=== PATIENT | male | born 2005 | race Asian ===

== ENCOUNTER 2025-04-13 16:37 | Inpatient (IN) ==
[2025-04-13] MEDS: EPINEPHrine INJ 1 MG/ML AMP IM STA ×2 (17:36→18:08)
[2025-04-13] MEDS: diphenhydrAMINE 50 MG/ML VIAL ONE (17:36)
[2025-04-13] MEDS: diphenhydrAMINE 50 MG/ML VIAL IV STA (17:36)
--- NOTE | 2025-04-13 17:36 | Emergency Department Note ---
ED Visit Note I was consulted by the Advanced Practice Provider, Regi Link PA-C. I personally made/approved the management plan and take responsibility for the patient management. I performed a substantive portion of the visit. This includes the aspects of: -History/Physical/Personally seeing the patient -MDM .
[2025-04-13] MEDS: FAMOTIDINE 20MG IV PUSH 20 MG/5 ML SYR IV STA (17:37)
[2025-04-13] MEDS: EPINEPHrine INJ 1 MG/ML AMP ONE (17:37)
[2025-04-13 17:38] LABS: Hematocrit (blood only) 49.6 % (42.0-52.0); Hemoglobin 17.2 g/dL (14.0-18.0); Immature Granulocytes # (auto) 0.02 K/uL (0.01-0.20); Immature Granulocytes % (auto) 0.2 %; Mean Corpuscular Hemoglobin 30.0 pg (25.0-34.0); Mean Corpuscular Volume 86.4 fL (80.0-100.0); Platelet Count 190 K/uL (130-400); RDW Standard Deviation 40.9 fL (36.4-46.3); Red Blood Count 5.74 M/uL (4.70-6.10); White Blood Count 8.35 K/ul (4.8-10.8)
[2025-04-13] MEDS: FAMOTIDINE 20MG/5ML IV PUSH IV ONE (17:38)
[2025-04-13] MEDS: SODIUM CHLORIDE 0.9% 1,000 ML IV SCH (17:38)
[2025-04-13 17:57] LABS: Alanine Aminotransferase 31.0 U/L (7-52); Albumin Globulin Ratio 1.7 (0.9-2); Albumin Level 4.6 gm/dl (3.4-5.0); Alkaline Phosphatase 59.0 U/L (34-104); Anion Gap 10.0 (3-11); Bilirubin,Total 0.8 mg/dl (0.2-1.0); Blood Urea Nitrogen 12.0 mg/dl (6-23); Calcium 9.6 mg/dl (8.6-10.3); Carbon Dioxide 26.0 mmol/L (21-32); Chloride 106.0 mmol/L (98-107); Creatinine Clr Calc Pharmacy 125.4 ml/min; Globulin 2.7 gm/dl (2.5-4.0); Glucose 96.0 mg/dl (70-99(Fasting)); Potassium 3.7 mmol/L (3.5-5.1); Sodium 142.0 mmol/L (136-145); Total Protein 7.3 gm/dl (6.0-8.3)
[2025-04-13] MEDS: STAT IV Infusion **Titration per Protocol STA (18:08)
[2025-04-13] MEDS: EPINEPHrine/NSS 4 MG/254 ML BAG IV SCH (18:18)
--- NOTE | 2025-04-13 18:59 | Emergency Department Note ---
Impression & Plan Anaphylactic reaction, Acute hypoxemic respiratory failure ED Provider Note CHIEF COMPLAINT: Allergic reaction HISTORY OF PRESENT ILLNESS: This 19-year-old male presents to the emergency department after he patient developed sudden onset of facial swelling, difficulty breathing, itchiness. 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 He states he ate 1 bite of a hot dog here in the cafeteria at the hospital and immediately developed the symptoms. Patient administered himself his EpiPen and notes his symptoms improved, but he did present to the emergency department for further evaluation. Shortly after he was brought to a room, the patient developed reoccurrence of facial swelling, difficulty breathing, generalized itchiness. Patient complains now of swelling of the face and lips, a rash on the chest, and a sensation of swelling in the throat. Patient reports history of anaphylaxis and has responded well to epi in the past. REVIEW OF SYSTEMS: A complete 10 point review of systems was reviewed with the patient with pertinent positives and negatives as per history of present illness. All else were negative. ALLERGIES: Egg, lactase, nut, sesame, shellfish PHYSICAL EXAM: Vital Signs: Reviewed Nurse's notes. VITALS: Vitals are noted on the nurse's note and reviewed by myself. Patient is tachycardic. During my examination, he became hypoxic with an O2 saturation of 85% on room air. GENERAL: This is a 19-year-old male, in no acute distress, nondiaphoretic, well- developed well-nourished. SKIN: Diffuse erythema of the face, neck, chest, extremities. The lips are swollen. There is periorbital edema. The skin was without rashes, erythema, edema, or bruising. There is no tenting of the skin. Capillary refill less than 2 seconds. HEAD: Normocephalic atraumatic. EYES: Periorbital edema and erythema. Pupils equal round and reactive to light and accommodation. Conjunctivae without injection, sclerae without icterus. Extraocular movements intact. NOSE: Patent, turbinates without inflammation or discharge. No sinus tenderness. MOUTH: Mucous membranes moist. Tonsils are not enlarged. Pharynx is edematous and erythematous. Uvula midline. Airway patent. Tongue does not deviate. No stridor NECK: Supple without nuchal rigidity. No lymphadenopathy. Cervical spine is nontender. No JVD. HEART: Regular rate and rhythm without murmurs gallops or rubs. LUNGS: Diffuse wheezing. No retractions or accessory muscle use. ABDOMEN: Positive bowel sounds x 4. Normal tympanic percussion. Soft, nontender, without masses or organomegaly. No guarding or rebound tenderness. MUSCULOSKELETAL: No muscle atrophy, erythema, or edema noted. Full range of motion without joint tenderness in all extremities. No tenderness to palpation. Normal gait. Strength 5/5 throughout. NEURO: Patient was alert and oriented to person place and time. Normal sensation to light and sharp touch. Deep tendon reflexes 2+ throughout. No focal neurological deficits. EMERGENCY DEPARTMENT COURSE: The patient was evaluated as above. The patient presents to the emergency department for anaphylactic reaction. The patient did have an EpiPen prior to arrival. IV Access was obtained, labs are drawn. At this time, the patient is experiencing a rebound reaction. The patient's face is erythematous, he is wheezing, tachypneic, with diffuse urticaria. Pt is becoming hypoxic and more tachycardic while at the bedside. Orders placed at the bedside for Epinephrine SC, Solu-Medrol IV, Benadryl IV, and Pepcid IV. Pt was given initial dose of Epinephrine IV by nursing staff, as they did not realize the order was for SQ dosing. Redness and swelling of the face has improved. Lip swelling has resolved. Pt. did become more tachycardic and was having runs of Bigeminy and V-tach on the monitoring tech, per my interpretation. These dysrhythmias did resolve while at the bedside. The patient was monitored by me at the bedside for quite some time. His symptoms did improve, though he continued to complain of some shortness of breath. He remained on O2 via nonrebreather. At this time, I did notice that the monitoring tech showed a sinus tachycardia with ventricular rate of 120 bpm. I reevaluated the patient at the bedside and his face is erythematous and starting to become edematous. The patient does have a urticaria on the bilateral hands. Order at the bedside placed for additional dose of epinephrine SC. This was administered subcutaneously as directed. The patient was again monitored. The redness, edema, and urticaria have improved. At this time, he was placed on epinephrine drip. I did discuss the case with the [facility] hospitalist service. They would like for the patient to be admitted to the ICU. Please see hospitalist dictation regarding ongoing management and final disposition of this patient. Differential diagnosis includes allergic reaction, anaphylaxis, urticaria, Leonardo-Nacho syndrome, contact dermatitis, cellulitis, as well as other pathologies. I have personally spent greater than 75 minutes of critical care time in the direct management of this patient to assess and manage anaphylaxis and respiratory failure. This includes bedside care, interpretation of diagnostic studies, and testing, discussion with consultants, patient, and family members, documentation time, and other required patient management activities. This 75 minutes is in excess of all separately billable procedures. I attest that I have personally reviewed the patient's current medication list. Patient was found to have normal blood pressure on screening and does not require follow-up. The chart was completed utilizing [employer] Speech voice recognition software. Grammatical errors, random word insertions, pronoun errors, and incomplete sentences are an occasional consequence of this system due to software limitations, ambient noise, and hardware issues. Any formal questions or concerns about the content, text, or information contained within the body of this dictation should be directly addressed to the provider for clarification. 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: No Beliefs That Will Affect Care: None Current Living Situation: Other Current Living Situation Comment: roommates (college student) Feels Safe at Home: Yes Assistive Devices: None Allergies Allergies Allergy/AdvReac Type Severity Reaction Status Date / Time egg Allergy Anaphylaxis Verified 03/13/24 20:26 lactase [From Dairy Aid] Allergy Anaphylaxis Verified 03/13/24 20:26 nut - unspecified Allergy Anaphylaxis Verified 03/13/24 20:26 sesame oil Allergy Anaphylaxis Verified 03/13/24 20:26 sesame seed Allergy Anaphylaxis Verified 03/13/24 20:26 shellfish derived Allergy Anaphylaxis Verified 03/13/24 20:26 Home Meds Home Medications Medication Instructions Recorded Confirmed albuterol sulfate 90 mcg/actuation 1 inh inhalation QID PRN Shortness 03/13/24 04/13/25 aerosol inhaler Of Breath budesonide-formoterol HFA 160 1 inh inhalation BID 03/13/24 04/13/25 mcg-4.5 mcg/actuation aerosol inhaler (Symbicort) epinephrine 0.3 mg/0.3 mL 0.3 mg IM DIRECTED PRN ALLERGIES 03/13/24 04/13/25 injection, auto-injector Results & Data (ED) Vital Signs Vital Signs - 24 hr 04/13/25 16:37 04/13/25 16:37 04/13/25 16:38 Temperature 37 C Temperature Source Temporal Artery Scan Pulse Rate 98 H Pulse Rate [Right Finger] 82 Pulse Rate from SpO2 Sensor Respiratory Rate 18 18 Respiratory Effort / Characteristics Non-Labored Spontaneous Respiratory Depth Normal Respiratory Pattern Regular Blood Pressure 123/79 Blood Pressure [Right Arm] 135/85 Blood Pressure Mean 93 Blood Pressure Mean [Right Arm] 101 Pulse Oximetry 97 98 97 Oxygen Delivery Method Room Air Room Air Oxygen Flow Rate Sepsis Recent Fever Within 48 Hours No Sepsis New/Unexplained Change in Mental Status No Sepsis Action Taken by Nursing No Action Required 04/13/25 17:14 04/13/25 17:27 04/13/25 18:09 Temperature Temperature Source Pulse Rate 92 H 86 98 H Pulse Rate [Right Finger] Pulse Rate from SpO2 Sensor Respiratory Rate 20 20 Respiratory Effort / Characteristics Respiratory Depth Respiratory Pattern Blood Pressure Blood Pressure [Right Arm] Blood Pressure Mean Blood Pressure Mean [Right Arm] Pulse Oximetry 99 Oxygen Delivery Method Non-rebreather Oxygen Flow Rate 15 Sepsis Recent Fever Within 48 Hours Sepsis New/Unexplained Change in Mental Status Sepsis Action Taken by Nursing 04/13/25 18:10 04/13/25 18:10 04/13/25 18:10 Temperature Temperature Source Pulse Rate Pulse Rate [Right Finger] Pulse Rate from SpO2 Sensor Respiratory Rate Respiratory Effort / Characteristics Respiratory Depth Respiratory Pattern Blood Pressure 111/76 111/76 111/76 Blood Pressure [Right Arm] Blood Pressure Mean 89 89 89 Blood Pressure Mean [Right Arm] Pulse Oximetry Oxygen Delivery Method Oxygen Flow Rate Sepsis Recent Fever Within 48 Hours Sepsis New/Unexplained Change in Mental Status Sepsis Action Taken by Nursing 04/13/25 18:10 04/13/25 18:12 04/13/25 18:15 Temperature Temperature Source Pulse Rate 101 H 97 H Pulse Rate [Right Finger] Pulse Rate from SpO2 Sensor 97 H Respiratory Rate 20 20 Respiratory Effort / Characteristics Respiratory Depth Respiratory Pattern Blood Pressure 111/76 Blood Pressure [Right Arm] Blood Pressure Mean 89 Blood Pressure Mean [Right Arm] Pulse Oximetry 100 Oxygen Delivery Method Oxygen Flow Rate Sepsis Recent Fever Within 48 Hours Sepsis New/Unexplained Change in Mental Status Sepsis Action Taken by Nursing 04/13/25 18:15 04/13/25 18:15 04/13/25 18:15 Temperature Temperature Source Pulse Rate Pulse Rate [Right Finger] Pulse Rate from SpO2 Sensor Respiratory Rate Respiratory Effort / Characteristics Respiratory Depth Respiratory Pattern Blood Pressure 99/74 L 99/74 L 99/74 L Blood Pressure [Right Arm] Blood Pressure Mean 81 81 81 Blood Pressure Mean [Right Arm] Pulse Oximetry Oxygen Delivery Method Oxygen Flow Rate Sepsis Recent Fever Within 48 Hours Sepsis New/Unexplained Change in Mental Status Sepsis Action Taken by Nursing 04/13/25 18:15 04/13/25 18:18 04/13/25 18:20 Temperature Temperature Source Pulse Rate 97 H Pulse Rate [Right Finger] Pulse Rate from SpO2 Sensor Respiratory Rate 22 Respiratory Effort / Characteristics Respiratory Depth Respiratory Pattern Blood Pressure 99/74 L 123/76 Blood Pressure [Right Arm] Blood Pressure Mean 81 85 Blood Pressure Mean [Right Arm] Pulse Oximetry Oxygen Delivery Method Oxygen Flow Rate Sepsis Recent Fever Within 48 Hours Sepsis New/Unexplained Change in Mental Status Sepsis Action Taken by Nursing 04/13/25 18:20 04/13/25 18:20 04/13/25 18:20 Temperature Temperature Source Pulse Rate Pulse Rate [Right Finger] Pulse Rate from SpO2 Sensor Respiratory Rate Respiratory Effort / Characteristics Respiratory Depth Respiratory Pattern Blood Pressure 123/76 123/76 123/76 Blood Pressure [Right Arm] Blood Pressure Mean 85 85 85 Blood Pressure Mean [Right Arm] Pulse Oximetry Oxygen Delivery Method Oxygen Flow Rate Sepsis Recent Fever Within 48 Hours Sepsis New/Unexplained Change in Mental Status Sepsis Action Taken by Nursing 04/13/25 18:20 04/13/25 18:21 04/13/25 18:24 Temperature Temperature Source Pulse Rate 100 H 100 H Pulse Rate [Right Finger] Pulse Rate from SpO2 Sensor 96 H 96 H Respiratory Rate 14 21 Respiratory Effort / Characteristics Respiratory Depth Respiratory Pattern Blood Pressure 123/76 Blood Pressure [Right Arm] Blood Pressure Mean 85 Blood Pressure Mean [Right Arm] Pulse Oximetry 100 100 Oxygen Delivery Method Oxygen Flow Rate Sepsis Recent Fever Within 48 Hours Sepsis New/Unexplained Change in Mental Status Sepsis Action Taken by Nursing 04/13/25 18:25 04/13/25 18:25 04/13/25 18:25 Temperature Temperature Source Pulse Rate Pulse Rate [Right Finger] Pulse Rate from SpO2 Sensor Respiratory Rate Respiratory Effort / Characteristics Respiratory Depth Respiratory Pattern Blood Pressure 115/71 115/71 115/71 Blood Pressure [Right Arm] Blood Pressure Mean 81 81 81 Blood Pressure Mean [Right Arm] Pulse Oximetry Oxygen Delivery Method Oxygen Flow Rate Sepsis Recent Fever Within 48 Hours Sepsis New/Unexplained Change in Mental Status Sepsis Action Taken by Nursing 04/13/25 18:25 04/13/25 18:30 04/13/25 18:30 Temperature Temperature Source Pulse Rate Pulse Rate [Right Finger] Pulse Rate from SpO2 Sensor Respiratory Rate Respiratory Effort / Characteristics Respiratory Depth Respiratory Pattern Blood Pressure 115/71 114/68 114/68 Blood Pressure [Right Arm] Blood Pressure Mean 81 79 79 Blood Pressure Mean [Right Arm] Pulse Oximetry Oxygen Delivery Method Oxygen Flow Rate Sepsis Recent Fever Within 48 Hours Sepsis New/Unexplained Change in Mental Status Sepsis Action Taken by Nursing 04/13/25 18:30 04/13/25 18:30 04/13/25 18:30 Temperature Temperature Source Pulse Rate Pulse Rate [Right Finger] Pulse Rate from SpO2 Sensor Respiratory Rate Respiratory Effort / Characteristics Respiratory Depth Respiratory Pattern Blood Pressure 114/68 114/68 114/68 Blood Pressure [Right Arm] Blood Pressure Mean 79 79 79 Blood Pressure Mean [Right Arm] Pulse Oximetry Oxygen Delivery Method Oxygen Flow Rate Sepsis Recent Fever Within 48 Hours Sepsis New/Unexplained Change in Mental Status Sepsis Action Taken by Nursing 04/13/25 18:30 04/13/25 18:33 04/13/25 18:35 Temperature Temperature Source Pulse Rate 77 75 Pulse Rate [Right Finger] Pulse Rate from SpO2 Sensor 79 77 Respiratory Rate 16 18 Respiratory Effort / Characteristics Respiratory Depth Respiratory Pattern Blood Pressure 107/61 Blood Pressure [Right Arm] Blood Pressure Mean 81 Blood Pressure Mean [Right Arm] Pulse Oximetry 100 100 Oxygen Delivery Method Oxygen Flow Rate Sepsis Recent Fever Within 48 Hours Sepsis New/Unexplained Change in Mental Status Sepsis Action Taken by Nursing 04/13/25 18:35 04/13/25 18:35 04/13/25 18:35 Temperature Temperature Source Pulse Rate Pulse Rate [Right Finger] Pulse Rate from SpO2 Sensor Respiratory Rate Respiratory Effort / Characteristics Respiratory Depth Respiratory Pattern Blood Pressure 107/61 107/61 107/61 Blood Pressure [Right Arm] Blood Pressure Mean 81 81 81 Blood Pressure Mean [Right Arm] Pulse Oximetry Oxygen Delivery Method Oxygen Flow Rate Sepsis Recent Fever Within 48 Hours Sepsis New/Unexplained Change in Mental Status Sepsis Action Taken by Nursing 04/13/25 18:35 04/13/25 18:39 04/13/25 18:40 Temperature Temperature Source Pulse Rate 83 Pulse Rate [Right Finger] Pulse Rate from SpO2 Sensor 83 Respiratory Rate 16 Respiratory Effort / Characteristics Respiratory Depth Respiratory Pattern Blood Pressure 107/61 111/64 Blood Pressure [Right Arm] Blood Pressure Mean 81 83 Blood Pressure Mean [Right Arm] Pulse Oximetry 100 Oxygen Delivery Method Oxygen Flow Rate Sepsis Recent Fever Within 48 Hours Sepsis New/Unexplained Change in Mental Status Sepsis Action Taken by Nursing 04/13/25 18:40 04/13/25 18:40 04/13/25 18:40 Temperature Temperature Source Pulse Rate Pulse Rate [Right Finger] Pulse Rate from SpO2 Sensor Respiratory Rate Respiratory Effort / Characteristics Respiratory Depth Respiratory Pattern Blood Pressure 111/64 111/64 111/64 Blood Pressure [Right Arm] Blood Pressure Mean 83 83 83 Blood Pressure Mean [Right Arm] Pulse Oximetry Oxygen Delivery Method Oxygen Flow Rate Sepsis Recent Fever Within 48 Hours Sepsis New/Unexplained Change in Mental Status Sepsis Action Taken by Nursing 04/13/25 18:40 04/13/25 18:42 04/13/25 18:45 Temperature Temperature Source Pulse Rate 82 Pulse Rate [Right Finger] Pulse Rate from SpO2 Sensor 83 Respiratory Rate 16 Respiratory Effort / Characteristics Respiratory Depth Respiratory Pattern Blood Pressure 111/64 115/72 Blood Pressure [Right Arm] Blood Pressure Mean 83 83 Blood Pressure Mean [Right Arm] Pulse Oximetry 99 Oxygen Delivery Method Oxygen Flow Rate Sepsis Recent Fever Within 48 Hours Sepsis New/Unexplained Change in Mental Status Sepsis Action Taken by Nursing 04/13/25 18:45 04/13/25 18:45 04/13/25 18:45 Temperature Temperature Source Pulse Rate Pulse Rate [Right Finger] Pulse Rate from SpO2 Sensor Respiratory Rate Respiratory Effort / Characteristics Respiratory Depth Respiratory Pattern Blood Pressure 115/72 115/72 115/72 Blood Pressure [Right Arm] Blood Pressure Mean 83 83 83 Blood Pressure Mean [Right Arm] Pulse Oximetry Oxygen Delivery Method Oxygen Flow Rate Sepsis Recent Fever Within 48 Hours Sepsis New/Unexplained Change in Mental Status Sepsis Action Taken by Nursing 04/13/25 18:45 04/13/25 18:45 04/13/25 18:48 Temperature Temperature Source Pulse Rate 86 85 Pulse Rate [Right Finger] Pulse Rate from SpO2 Sensor 86 82 Respiratory Rate 17 15 Respiratory Effort / Characteristics Respiratory Depth Respiratory Pattern Blood Pressure 115/72 Blood Pressure [Right Arm] Blood Pressure Mean 83 Blood Pressure Mean [Right Arm] Pulse Oximetry 99 99 Oxygen Delivery Method Oxygen Flow Rate Sepsis Recent Fever Within 48 Hours Sepsis New/Unexplained Change in Mental Status Sepsis Action Taken by Nursing 04/13/25 18:50 04/13/25 18:50 04/13/25 18:50 Temperature Temperature Source Pulse Rate Pulse Rate [Right Finger] Pulse Rate from SpO2 Sensor Respiratory Rate Respiratory Effort / Characteristics Respiratory Depth Respiratory Pattern Blood Pressure 108/70 108/70 108/70 Blood Pressure [Right Arm] Blood Pressure Mean 83 83 83 Blood Pressure Mean [Right Arm] Pulse Oximetry Oxygen Delivery Method Oxygen Flow Rate Sepsis Recent Fever Within 48 Hours Sepsis New/Unexplained Change in Mental Status Sepsis Action Taken by Nursing 04/13/25 18:50 04/13/25 18:50 04/13/25 18:51 Temperature Temperature Source Pulse Rate 91 H Pulse Rate [Right Finger] Pulse Rate from SpO2 Sensor 96 H Respiratory Rate 18 Respiratory Effort / Characteristics Respiratory Depth Respiratory Pattern Blood Pressure 108/70 108/70 Blood Pressure [Right Arm] Blood Pressure Mean 83 83 Blood Pressure Mean [Right Arm] Pulse Oximetry 100 Oxygen Delivery Method Oxygen Flow Rate Sepsis Recent Fever Within 48 Hours Sepsis New/Unexplained Change in Mental Status Sepsis Action Taken by Nursing 04/13/25 18:54 04/13/25 18:55 04/13/25 18:55 Temperature Temperature Source Pulse Rate 104 H Pulse Rate [Right Finger] Pulse Rate from SpO2 Sensor 102 H Respiratory Rate 19 Respiratory Effort / Characteristics Respiratory Depth Respiratory Pattern Blood Pressure 107/68 107/68 Blood Pressure [Right Arm] Blood Pressure Mean 78 78 Blood Pressure Mean [Right Arm] Pulse Oximetry 99 Oxygen Delivery Method Oxygen Flow Rate Sepsis Recent Fever Within 48 Hours Sepsis New/Unexplained Change in Mental Status Sepsis Action Taken by Nursing 04/13/25 18:55 04/13/25 18:55 04/13/25 18:55 Temperature Temperature Source Pulse Rate Pulse Rate [Right Finger] Pulse Rate from SpO2 Sensor Respiratory Rate Respiratory Effort / Characteristics Respiratory Depth Respiratory Pattern Blood Pressure 107/68 107/68 107/68 Blood Pressure [Right Arm] Blood Pressure Mean 78 78 78 Blood Pressure Mean [Right Arm] Pulse Oximetry Oxygen Delivery Method Oxygen Flow Rate Sepsis Recent Fever Within 48 Hours Sepsis New/Unexplained Change in Mental Status Sepsis Action Taken by Nursing 04/13/25 19:00 04/13/25 19:00 04/13/25 19:00 Temperature Temperature Source Pulse Rate Pulse Rate [Right Finger] Pulse Rate from SpO2 Sensor Respiratory Rate Respiratory Effort / Characteristics Respiratory Depth Respiratory Pattern Blood Pressure 107/65 107/65 107/65 Blood Pressure [Right Arm] Blood Pressure Mean 75 75 75 Blood Pressure Mean [Right Arm] Pulse Oximetry Oxygen Delivery Method Oxygen Flow Rate Sepsis Recent Fever Within 48 Hours Sepsis New/Unexplained Change in Mental Status Sepsis Action Taken by Nursing 04/13/25 19:00 04/13/25 19:00 04/13/25 19:00 Temperature Temperature Source Pulse Rate 90 Pulse Rate [Right Finger] Pulse Rate from SpO2 Sensor 90 Respiratory Rate 15 Respiratory Effort / Characteristics Respiratory Depth Respiratory Pattern Blood Pressure 107/65 107/65 Blood Pressure [Right Arm] Blood Pressure Mean 75 75 Blood Pressure Mean [Right Arm] Pulse Oximetry 99 Oxygen Delivery Method Oxygen Flow Rate Sepsis Recent Fever Within 48 Hours Sepsis New/Unexplained Change in Mental Status Sepsis Action Taken by Nursing 04/13/25 19:03 04/13/25 19:05 04/13/25 19:05 Temperature Temperature Source Pulse Rate 102 H Pulse Rate [Right Finger] Pulse Rate from SpO2 Sensor 99 H Respiratory Rate 15 Respiratory Effort / Characteristics Respiratory Depth Respiratory Pattern Blood Pressure 110/67 110/67 Blood Pressure [Right Arm] Blood Pressure Mean 82 82 Blood Pressure Mean [Right Arm] Pulse Oximetry 99 Oxygen Delivery Method Oxygen Flow Rate Sepsis Recent Fever Within 48 Hours Sepsis New/Unexplained Change in Mental Status Sepsis Action Taken by Nursing 04/13/25 19:05 04/13/25 19:05 04/13/25 19:05 Temperature Temperature Source Pulse Rate Pulse Rate [Right Finger] Pulse Rate from SpO2 Sensor Respiratory Rate Respiratory Effort / Characteristics Respiratory Depth Respiratory Pattern Blood Pressure 110/67 110/67 110/67 Blood Pressure [Right Arm] Blood Pressure Mean 82 82 82 Blood Pressure Mean [Right Arm] Pulse Oximetry Oxygen Delivery Method Oxygen Flow Rate Sepsis Recent Fever Within 48 Hours Sepsis New/Unexplained Change in Mental Status Sepsis Action Taken by Nursing Laboratory Data 04/13/25 16:51 04/13/25 16:51 Lab Results 04/13/25 Range/Units 16:51 WBC 8.35 (4.8-10.8) K/ul RBC 5.74 (4.70-6.10) M/uL Hgb 17.2 (14.0-18.0) g/dL Hct 49.6 (42.0-52.0) % MCV 86.4 (80.0-100.0) fL MCH 30.0 (25.0-34.0) pg MCHC 34.7 (32.0-36.0) g/dL RDW Std Deviation 40.9 (36.4-46.3) fL RDW Coeff of Pedro Luis 13.2 (11.5-14.5) % Plt Count 190 (130-400) K/uL MPV 11.3 (9.4-12.4) fL Immature Gran % (Auto) 0.2 % Neut % (Auto) 43.5 % Lymph % (Auto) 39.4 % [place] % (Auto) 7.4 % Eos % (Auto) 8.5 % Baso % (Auto) 1.0 % Neut # (Auto) 3.63 (1.40-6.50) K/uL Lymph # (Auto) 3.29 (1.20-3.40) K/uL [place] # (Auto) 0.62 H (0.11-0.59) K/uL Eos # (Auto) 0.71 H (0.00-0.50) K/uL Baso # (Auto) 0.08 (0.00-0.20) K/uL Immature Gran # (Auto) 0.02 (0.01-0.20) K/uL Sodium 142 (136-145) mmol/L Potassium 3.7 (3.5-5.1) mmol/L Chloride 106 (98-107) mmol/L Carbon Dioxide 26 (21-32) mmol/L Anion Gap 10 (3-11) BUN 12 (6-23) mg/dl Creatinine 0.80 (0.6-1.4) mg/dl Est Cr Clr Drug Dosing 125.4 ml/min eGFR 129.93 BUN/Creatinine Ratio 15.0 (10-20) Glucose 96 (70-99(Fasting)) mg/dl Calcium 9.6 (8.6-10.3) mg/dl Total Bilirubin 0.8 (0.2-1.0) mg/dl AST 19 (13-39) U/L ALT 31 (7-52) U/L Alkaline Phosphatase 59 (34-104) U/L Total Protein 7.3 (6.0-8.3) gm/dl Albumin 4.6 (3.4-5.0) gm/dl Globulin 2.7 (2.5-4.0) gm/dl Albumin/Globulin Ratio 1.7 (0.9-2) Administered Medications Famotidine (Famotidine 20 Mg Tab) 40 mg PO BID CARMEN Stop: 05/13/25 20:59 Last Admin: 04/13/25 20:13 Dose: 40 mg Documented By: CR Fluticasone/Vilanterol (Fluticasone/Vilanterol 200/25mcg 14 Puffs/Inhaler) 1 puffs INH DAILY [facility]; Protocol Stop: 05/13/25 20:14 Last Admin: 04/13/25 20:22 Dose: Not Given Documented By: CR Epinephrine HCl () 4 mg in 254 mls @ 11.468 mls/hr IV .[id number] CARMEN; Protocol Stop: 05/13/25 18:14 Last Infusion: 04/13/25 21:51 Dose: 0 mcg/kg/min, 0 mls/hr Documented By: CR Co-signed By: MNM Infusion: 04/13/25 21:40 Dose: 0.01 mcg/kg/min, 2.3 mls/hr Documented By: CR Co-signed By: MNM Infusion: 04/13/25 21:35 Dose: 0.02 mcg/kg/min, 4.6 mls/hr Documented By: CR Co-signed By: MNM Infusion: 04/13/25 21:15 Dose: 0.03 mcg/kg/min, 6.9 mls/hr Documented By: CR Co-signed By: MNM Infusion: 04/13/25 21:00 Dose: 0.04 mcg/kg/min, 9.2 mls/hr Documented By: CR Co-signed By: MNM Infusion: 04/13/25 20:50 Dose: 0.05 mcg/kg/min, 11.5 mls/hr Documented By: CR Co-signed By: [id number] Infusion: 04/13/25 20:45 Dose: 0.06 mcg/kg/min, 13.8 mls/hr Documented By: CR Co-signed By: [id number] Infusion: 04/13/25 20:40 Dose: 0.07 mcg/kg/min, 16.1 mls/hr Documented By: MARYAM Co-signed By: [id number] Infusion: 04/13/25 20:35 Dose: 0.08 mcg/kg/min, 18.3 mls/hr Documented By: CR Co-signed By: [id number] Infusion: 04/13/25 20:30 Dose: 0.09 mcg/kg/min, 20.6 mls/hr Documented By: CR Co-signed By: [id number] Admin: 04/13/25 18:18 Dose: 0.1 mcg/kg/min, 22.9 mls/hr Documented By: GABBIE Co-signed By: loki Parenteral Electrolytes (Plasma-Lyte A Ph 7.4) 1,000 mls @ 125 mls/hr IV .Q8H CARMEN Stop: 04/16/25 19:46 Last Admin: 04/13/25 20:06 Dose: 125 mls/hr Documented By: MARYAM Miscellaneous (Icu Protocol For Hyperglycemia) 1 each N/A ACHS CARMEN Stop: 04/15/25 20:59 Last Admin: 04/13/25 20:12 Dose: Not Given Documented By: MARYAM Discontinued Medications Diphenhydramine HCl (Diphenhydramine 50 Mg/Ml Vial) Confirm Administered Dose 50 mg .ROUTE .STK-MED ONE Stop: 04/13/25 17:20 Last Admin: 04/13/25 17:36 Dose: Not Given Documented By: loki Diphenhydramine HCl (Diphenhydramine 50 Mg/Ml Vial) 50 mg IV NOW STA Stop: 04/13/25 17:20 Last Admin: 04/13/25 17:36 Dose: 50 mg Documented By: loki Epinephrine HCl (Epinephrine Inj 1 Mg/Ml Amp) 0.3 mg IM NOW STA Stop: 04/13/25 17:20 Last Admin: 04/13/25 17:36 Dose: 0.3 mg Documented By: loki Epinephrine HCl (Epinephrine Inj 1 Mg/Ml Amp) Confirm Administered Dose 1 mg .ROUTE .STK-MED ONE Stop: 04/13/25 17:21 Last Admin: 04/13/25 17:37 Dose: Not Given Documented By: loki Epinephrine HCl (Epinephrine Inj 1 Mg/Ml Amp) 0.3 mg IM NOW STA Stop: 04/13/25 18:04 Last Admin: 04/13/25 18:08 Dose: 0.3 mg Documented By: GABBIE Famotidine (Famotidine 20mg/5ml Iv Push) Confirm Administered Dose 20 mg IV .STK-MED ONE Stop: 04/13/25 17:22 Last Admin: 04/13/25 17:38 Dose: Not Given Documented By: loki Famotidine (Pepcid 20mg Iv Push) 20 mg in 5 mls @ 2.5 mls/min IV NOW STA Stop: 04/13/25 17:20 Last Admin: 04/13/25 17:37 Dose: 2.5 mls/min Documented By: loki Sodium Chloride (Nss) 1,000 mls @ 999 mls/hr IV .Q1H1M CARMEN Stop: 04/13/25 18:30 Last Infusion: 04/13/25 19:02 Dose: Infused Documented By: loki Admin: 04/13/25 17:38 Dose: 999 mls/hr Documented By: loki Methylprednisolone (Methylprednisolone 125 Mg/2 Ml Vial) Confirm Administered Dose 125 mg .ROUTE .STK-MED ONE Stop: 04/13/25 17:20 Last Admin: 04/13/25 17:37 Dose: Not Given Documented By: loki Methylprednisolone (Methylprednisolone 125 Mg/2 Ml Vial) 125 mg IV NOW STA Stop: 04/13/25 17:20 Last Admin: 04/13/25 17:37 Dose: 125 mg Documented By: loki Miscellaneous (Stat Iv Infusion Titration Per Protocol) 1 each N/A NOW STA Stop: 04/13/25 18:05 Last Admin: 04/13/25 18:08 Dose: Not Given Documented By: ARS Discharge Plan Visit Data Chief Complaint: Allergic Reaction Stated Complaint: ALLERGIC RXN, FACE FLUSHED, PAST 15-20 MINS ED Provider: Jeremías Sofia ED Midlevel Provider: Regi Link Discharge Problem: Anaphylactic reaction, Acute hypoxemic respiratory failure Patient Disposition: Admitted As Inpatient Condition: Serious Discharge Instructions Interventions: ED Discharge Assessment Last Done: 04/13/25 19:46
--- NOTE | 2025-04-13 19:09 | History & Physical Report ---
Date of Service April 13, 2025 Assessment & Plan (1) Anaphylactic reaction: Plan 19 y/o male with PMH of asthma nd allergies presented to the Ed after a anaphylaxis reaction. Patient is a volunteer in the hospital. Around 4 pm he had a hot dog, suddenly after patient developed SOB, facial swelling itchiness. Patient used his own EpiPen. His symptoms improved shortly after. After arrival to the ED patient developed recurrence of symptoms, Additionally of facial swelling, difficulty breathing patient states having swelling of lips and face as well as a rash on his body. Patient received 2 mores doses of epinephrine, Benadryl, Methylprednisolone 125 mg and h1 blockers . Patient still was having bronchospasm symptoms, he was placed on an epinephrine drip. On Evaluation patient resting comfortable, symptoms are resolved. Denied nay difficulty breathing or itchiness. Only complains is feeling restless after Epi ggt was started. Patient stated that he usually responded well to the EpiPen. Known history of allergies to egg, lactose, nuts, sesame oil/seeds and selfish. He is a Senior at [employer] Anaphylaxis reaction - Difficulty breathing, rash, itchiness, swelling of face and lips after eating a hot dog. Suspected cross contamination - Patient received his EpiPen and 2 more doses of epinephrine IM in the ED, famotidine, Methylprednisolone 125 mg and Benadryl - Patient still with symptoms of bronchospasm, patient was placed on Epinephrine ggt - Will admit patient to ICU - Continue Epinephrine ggt for now, plan to dc after been on unit for observation - Famotidine in am - Benadryl as needed q4 hrs - Keep NPO status, if tolerate dc of ggt can have diet (clears diet) - Plasmalyte while on NPO - Labs in AM Dispo: ICU -DVT prophylaxis: low risk, SCDs History of Present Illness Primary Care Provider: [facility] 19 y/o male with PMH of asthma nd allergies presented to the Ed after a anaphylaxis reaction. Patient is a volunteer in the hospital. Around 4 pm he had a hot dog, suddenly after patient developed SOB, facial swelling itchiness. Patient used his own EpiPen. His symptoms improved shortly after. After arrival to the ED patient developed recurrence of symptoms, Additionally of facial swelling, difficulty breathing patient states having swelling of lips and face as well as a rash on his body. Patient received 2 mores doses of epinephrine, Benadryl, Methylprednisolone 125 mg and h1 blockers . Patient still was having bronchospasm symptoms, he was placed on an epinephrine drip. On Evaluation patient resting comfortable, symptoms are resolved. Denied nay difficulty breathing or itchiness. Only complains is feeling restless after Epi ggt was started. Patient stated that he usually responded well to the EpiPen. Known history of allergies to egg, lactose, nuts, sesame oil/seeds and selfish. He is a Senior at [employer] Allergies Allergy/AdvReac Type Severity Reaction Status Date / Time egg Allergy Anaphylaxis Verified 03/13/24 20:26 lactase [From Dairy Aid] Allergy Anaphylaxis Verified 03/13/24 20:26 nut - unspecified Allergy Anaphylaxis Verified 03/13/24 20:26 sesame oil Allergy Anaphylaxis Verified 03/13/24 20: sesame seed Allergy Anaphylaxis Verified 03/13/24 20: shellfish derived Allergy Anaphylaxis Verified 03/13/24 20:26 Home Medications Medication Instructions Recorded Confirmed Type albuterol sulfate 90 mcg/actuation 1 inh inhalation QID PRN Shortness 03/13/24 04/13/25 History aerosol inhaler Of Breath budesonide-formoterol HFA 160 1 inh inhalation BID 03/13/24 04/13/25 History mcg-4.5 mcg/actuation aerosol inhaler (Symbicort) epinephrine 0.3 mg/0.3 mL 0.3 mg IM DIRECTED PRN ALLERGIES 03/13/24 04/13/25 History injection, auto-injector Past Med/Surg History Problem List (Updated 04/13/25 @ 19:50 by Adrianna Seaman PA-C) Multiple food allergies Acute hypoxemic respiratory failure Anaphylactic reaction Medical History Allergic reaction Social History Smoking Status: Never smoker Preferred Language: Jordanian Feels Safe at Home: Yes Review of Systems Review of Systems: as per HPI Physical Exam Constitutional: WD/WN, vitals as above Eyes: PERRL, conjunctivae normal, anicteric sclerae ENMT: external ear and nose normal, oropharynx normal Respiratory: normal respiratory effort, lungs clear to auscultation Cardiovascular: RRR, no murmur, no edema Psychiatric: A+Ox3, euthymic affect Results & Data Results & Data Vital Signs (Past 12 Hours) Vital Signs Temp Pulse Pulse Resp BP BP Pulse Ox 04/13/25 18:50 108/70 04/13/25 18:48 85 15 99 04/13/25 18:45 86 17 99 04/13/25 18:45 115/72 04/13/25 18:45 115/72 04/13/25 18:45 115/72 04/13/25 18:45 115/72 04/13/25 18:45 115/72 04/13/25 18:42 82 16 99 04/13/25 18:40 111/64 04/13/25 18:40 111/64 04/13/25 18:40 111/64 04/13/25 18:40 111/64 04/13/25 18:40 111/64 04/13/25 18:39 83 16 100 04/13/25 18:35 107/04/13/25 18:35 107/04/13/25 18:35 107/61 04/13/25 18:35 107/61 04/13/25 18:35 107/61 04/13/25 18:33 75 18 100 04/13/25 18:30 77 16 100 04/13/25 18:30 114/68 04/13/25 18:30 114/68 04/13/25 18:30 114/68 04/13/25 18:30 114/68 04/13/25 18:30 114/68 04/13/25 18:25 115/71 04/13/25 18:25 115/71 04/13/25 18:25 115/71 04/13/25 18:25 115/71 04/13/25 18:24 100 H 21 100 04/13/25 18:21 100 H 14 100 04/13/25 18:20 123/76 04/13/25 18:20 123/76 04/13/25 18:20 123/76 04/13/25 18:20 123/76 04/13/25 18:20 123/76 04/13/25 18:18 97 H 22 04/13/25 18:15 99/74 L 04/13/25 18:15 99/74 L 04/13/25 18:15 99/74 L 04/13/25 18:15 99/74 L 04/13/25 18:15 97 H 20 100 04/13/25 18:12 101 H 20 04/13/25 18:10 111/76 04/13/25 18:10 111/76 04/13/25 18:10 111/76 04/13/25 18:10 111/76 04/13/25 18:09 98 H 20 04/13/25 17:27 86 20 99 04/13/25 17:14 92 H 04/13/25 16:38 37 C 98 H 18 123/79 97 04/13/25 16:37 82 18 135/85 98 04/13/25 16:37 97 O2 Del Method O2 Flow Rate 04/13/25 18:50 04/13/25 18:48 04/13/25 18:45 04/13/25 18:45 04/13/25 18:45 04/13/25 18:45 04/13/25 18:45 04/13/25 18:45 04/13/25 18:42 04/13/25 18:40 04/13/25 18:40 04/13/25 18:40 04/13/25 18:40 04/13/25 18:40 04/13/25 18:39 04/13/25 18:35 04/13/25 18:35 04/13/25 18:35 04/13/25 18:35 04/13/25 18:35 04/13/25 18:33 04/13/25 18:30 04/13/25 18:30 04/13/25 18:30 04/13/25 18:30 04/13/25 18:30 04/13/25 18:30 04/13/25 18:25 04/13/25 18:25 04/13/25 18:25 04/13/25 18:25 04/13/25 18:24 04/13/25 18:21 04/13/25 18:20 04/13/25 18:20 04/13/25 18:20 04/13/25 18:20 04/13/25 18:20 04/13/25 18:18 04/13/25 18:15 04/13/25 18:15 04/13/25 18:15 04/13/25 18:15 04/13/25 18:15 04/13/25 18:12 04/13/25 18:10 04/13/25 18:10 04/13/25 18:10 04/13/25 18:10 04/13/25 18:09 04/13/25 17:27 Non-rebreather 15 04/13/25 17:14 04/13/25 16:38 Room Air 04/13/25 16:37 04/13/25 16:37 Room Air Code Status & VTE Plan VTE Prophylaxis Plan VTE Prophylaxis will be ordered: Yes Supervising Physician Co-Signing Physician Notes ATTESTATION I also saw the patient and confirmed acevedo portions of the history and exam. I agree with the impression and plan in the resident documentation, and as summarized below. 19-year-old male patient with known history of multiple dietary allergies and history of reactions requiring subcutaneous epinephrine presents to the emergency department after acute anaphylaxis subsequent to a bite of hot dog. Patient, he was a volunteer in our hospital, took a single bite of a hot dog and rolled and developed sudden angioedema, facial swelling, and dyspnea. He took his subcutaneous epinephrine with some improvement, then presented to the emergency department. Shortly after his emergency department presentation, he had recurrent symptoms and was thus medicated with a second round of epinephrine and subsequent improvement, followed by relapse and additional epinephrine. He was ultimately started on a epinephrine drip. Adjuvant therapy included IV Solu-Medrol, H1, and H2 blockade. Upon my exam, he is without any respiratory difficulty. Hemodynamically stable. He does complain of being a little shaky. Subtle but resolving angioedema. EXAM 94/64, 88, 17, afebrile Pleasant alert. Heart regular rhythm but tachycardic Lungs clear with nonlabored respirations. DATA Labs CBC and BMP unremarkable IMPRESSION & PLAN Refractory anaphylaxis uncertain etiology, but he has multiple allergies. His hotdog was gotten from a cafeteria food line, cross-reactivity is possible as well. He has had several previous reactions that have required SC epinephrine; but this is his first refractory anaphylaxis requiring epinephrine drip. since there was a minimal interval between relapse, still consider this a uniphasic reaction Will admit to ICU Taper epinephrine drip as hemodynamics and symptoms allow Close observation for refractory symptoms; he is also at increased risk for biphasic reaction Hold on additional steroids at this time Famotidine 40 mg p.o. twice daily Cetirizine 10 mg p.o. daily Additional per resident documentation Resident Activity Tracking Resident Involvement: Resident Care Provided Care Provided: Adult [facility]
[2025-04-13] MEDS ORDERED: diphenhydrAMINE 50 MG/ML VIAL IV PRN (19:47)
[2025-04-13] MEDS ORDERED: ALBUTEROL HFA 8 GM INHALER INH PRN (19:47)
--- NOTE | 2025-04-13 19:48 | Critical Care Consultation ---
<Statement entered by Jeffrey Moise MD - 04/14/25 07:04> I, Jeffrey Moise MD, reviewed the physical exam, assessment, plan, and management as documented by the Advanced Care Provider Adrianna Seaman PA-C, for this patient encounter. I discussed the case with them, confirmed the findings, and I concur with the proposed plan of care. I was available for consultation throughout the encounter and provided guidance as needed. Date of Consultation April 13, 2025 Assessment & Plan (1) Anaphylactic reaction: (2) Acute hypoxemic respiratory failure: (3) Multiple food allergies: Plan Reason Critically Ill: 1. Anaphylaxis 2. Acute hypoxic respiratory failure 2/2 #1, resolved 3. Multiple food allergies 4. Asthma Neuro - [facility] ICU: Negative RASS GOAL 0 Routine neurologic checks per protocol APAP PRN pain/fever Continue Benadryl 50mg IV Q6H PRN Cardiac - No acute concerns MAP goal > 65mmHg Aggressively wean epinephrine, can be restarted if symptoms recur Respiratory - HOB 30, aspiration precautions Non-bronchospastic on examination Close airway monitoring SpO2 goal > 92% Patient requests if needed we use his personal inhalers he has with him GI - No acute concerns Diet: NPO pending sustained improvement SUP: Continue famotidine 20mg Q12H Bowel regimen: PRN RENAL/LYTES - Gentle mIVF whilst NPO Replete electrolytes as indicated No indication for Mendoza catheter Maintain net even to net negative ENDO - Received Solumedrol 125mg IV x1 Continued steroids not necessary BG 140-180 per [facility]M guidelines ISS if needed while inpatient HEME - No acute concerns ID - No acute concerns LINES/TUBES/DRAINS - PIV x2 DVT PROPHYLAXIS - Low risk, ambulate tomorrow I have personally spent 35 minutes of critical care time in the direct management of this patient. This is a life/limb threatening event. This includes time spent evaluating patient, direct bedside care, chart review, placing orders, interpretation of diagnostic studies, discussion with consultants, patient, and family members, as well as other required patient management activities. This time is exclusive of all separately billable procedures, and teaching time and separate from and in addition to any other critical care service time. Thank you for allowing us to participate in the care of this patient. Please refer to my attending physician's documentation for any further recommendations. History of Present Illness Reason for Consultation: Anaphylaxis Requesting Physician: Hospitalist Attending Physician: Hospitalist History of Present Illness Juanjose Mobley is a 19YOM with a history of multiple food allergies with eri phylaxis, allergic asthma who presented to [facility] ED this afternoon due to acute onset of facial swelling, difficulty breathing, and itchiness after eating part of a hot dog in the cafeteria. Patient reportedly self-administered his EpiPen with some improvement prior to presenting to ED. In ED patient developed recurrence of symptoms requiring epinephrine IM x2, Solumedrol, IV Benadryl, IV H1B. 1L NSS administered. He had diffuse rash, periorbital edema, and swollen lips on initial examination. No stridor. Due to recurrence of bronchospasm and new oxygen requirement the patient was placed on epinephrine infusion. Lab work- up overall unremarkable. ICU was consulted for admission. 10-point ROS negative, including SOB/dyspnea, chest tightness, dizziness, headache, abdominal pain, nausea, diarrhea. Patient was seen in ICU 109. He is AAOx3. Resting comfortably. Stable on room air. Epinephrine infusion running at 0.1mcg/kg/min. Patient tells me he went for lunch today in the cafeteria and notified staff of his food allergies. Hot dog was indicated to be safe for him to eat. He took one bite and developed the above symptoms. No other co-ingestants, raising concern for cross-contamination. Currently he feels well. Inquiring about epinephrine infusion and discharge. Allergies Allergy/AdvReac Type Severity Reaction Status Date / Time egg Allergy Anaphylaxis Verified 03/13/24 20:26 lactase [From Dairy Aid] Allergy Anaphylaxis Verified 03/13/24 20:26 nut - unspecified Allergy Anaphylaxis Verified 03/13/24 20:26 sesame oil Allergy Anaphylaxis Verified 03/13/24 20:26 sesame seed Allergy Anaphylaxis Verified 03/13/24 20:26 shellfish derived Allergy Anaphylaxis Verified 03/13/24 20:26 Home Medications Medication Instructions Recorded Confirmed Type albuterol sulfate 90 mcg/actuation 1 inh inhalation QID PRN Shortness 03/13/24 04/13/25 History aerosol inhaler Of Breath budesonide-formoterol HFA 160 1 inh inhalation BID 03/13/24 04/13/25 History mcg-4.5 mcg/actuation aerosol inhaler (Symbicort) epinephrine 0.3 mg/0.3 mL 0.3 mg IM DIRECTED PRN ALLERGIES 03/13/24 04/13/25 History injection, auto-injector Patient History Medical History Allergic reaction Social History Smoking Status: Never smoker Hx Alcohol Use: No Hx Substance Use: No Preferred Language: Hungarian Wheel Alignment Technician Required: No Beliefs That Will Affect Care: None Current Living Situation: Other Current Living Situation Comment: roommates (college student) Feels Safe at Home: Yes Assistive Devices: None Review of Systems Review of Systems: All systems reviewed & are unremarkable except as noted in Subjective Physical Exam Constitutional: WD/WN, vitals as above Eyes: PERRL, conjunctivae normal, anicteric sclerae ENMT: external ear and nose normal, oropharynx normal Neck: trachea midline, no thyromegaly Respiratory: normal respiratory effort; no respiratory distress, no labored breathing, does not use accessory muscles and no stridor Cardiovascular: RRR, no murmur, no edema Gastrointestinal (Abdomen): normal bowel sounds, soft, nontender, no hepatosplenomegaly Musculoskeletal: no cyanosis or clubbing, extremities motor strength 5/5 Skin: no rashes, warm and dry Neurologic: PERRL, EOMI, accommodation nl, no face palsy, no dysarthria Genitourinary: Deferred Results & Data Results & Data Vital Signs (Past 12 Hours) Vital Signs Temp Pulse Pulse Resp BP BP Pulse Ox 04/13/25 19:25 94/64 L 04/13/25 19:25 94/64 L 04/13/25 19:25 94/64 L 04/13/25 19:25 94/64 L 04/13/25 19:25 94/64 L 04/13/25 19:24 88 17 99 04/13/25 19:21 90 16 98 04/13/25 19:20 104/61 04/13/25 19:20 104/61 04/13/25 19:20 104/61 04/13/25 19:20 104/61 04/13/25 19:20 104/61 04/13/25 19:18 90 17 98 04/13/25 19:15 109/63 04/13/25 19:15 109/63 04/13/25 19:15 109/63 04/13/25 19:15 109/63 04/13/25 19:15 109/63 04/13/25 19:15 88 16 98 04/13/25 19:12 86 16 98 04/13/25 19:10 115/71 04/13/25 19:10 115/71 04/13/25 19:10 115/71 04/13/25 19:10 115/71 04/13/25 19:10 115/71 04/13/25 19:09 100 H 16 98 04/13/25 19:05 110/67 04/13/25 19:05 110/67 04/13/25 19:05 110/67 04/13/25 19:05 110/67 04/13/25 19:05 110/67 04/13/25 19:03 102 H 15 99 04/13/25 19:00 90 15 99 04/13/25 19:00 107/65 04/13/25 19:00 107/65 04/13/25 19:00 107/65 04/13/25 19:00 107/65 04/13/25 19:00 107/65 04/13/25 18:55 107/68 04/13/25 18:55 107/68 04/13/25 18:55 107/68 04/13/25 18:55 107/68 04/13/25 18:55 107/68 04/13/25 18:54 104 H 19 99 04/13/25 18:51 91 H 18 100 04/13/25 18:50 108/70 04/13/25 18:50 108/70 04/13/25 18:50 108/70 04/13/25 18:50 108/70 04/13/25 18:50 108/70 04/13/25 18:48 85 15 99 04/13/25 18:45 86 17 99 04/13/25 18:45 115/72 04/13/25 18:45 115/72 04/13/25 18:45 115/72 04/13/25 18:45 115/72 04/13/25 18:45 115/72 04/13/25 18:42 82 16 99 04/13/25 18:40 111/64 04/13/25 18:40 111/64 04/13/25 18:40 111/64 04/13/25 18:40 111/64 04/13/25 18:40 111/64 04/13/25 18:39 83 16 100 04/13/25 18:35 107/61 04/13/25 18:35 107/61 04/13/25 18:35 107/61 04/13/25 18:35 107/61 04/13/25 18:35 107/61 04/13/25 18:33 75 18 100 04/13/25 18:30 77 16 100 04/13/25 18:30 114/68 04/13/25 18:30 114/68 04/13/25 18:30 114/68 04/13/25 18:30 114/68 04/13/25 18:30 114/68 04/13/25 18:25 115/71 04/13/25 18:25 115/71 04/13/25 18:25 115/71 04/13/25 18:25 115/71 04/13/25 18:24 100 H 21 100 04/13/25 18:21 100 H 14 100 04/13/25 18:20 123/76 04/13/25 18:20 123/76 04/13/25 18:20 123/76 04/13/25 18:20 123/76 04/13/25 18:20 123/76 04/13/25 18:18 97 H 22 04/13/25 18:15 99/74 L 04/13/25 18:15 99/74 L 04/13/25 18:15 99/74 L 04/13/25 18:15 99/74 L 04/13/25 18:15 97 H 20 100 04/13/25 18:12 101 H 20 04/13/25 18:10 111/76 04/13/25 18:10 111/76 04/13/25 18:10 111/76 04/13/25 18:10 111/76 04/13/25 18:09 98 H 20 04/13/25 17:27 86 20 99 04/13/25 17:14 92 H 04/13/25 16:38 37 C 98 H 18 123/79 97 04/13/25 16:37 82 18 135/85 98 04/13/25 16:37 97 O2 Del Method O2 Flow Rate 04/13/25 19:25 04/13/25 19:25 04/13/25 19:25 04/13/25 19:25 04/13/25 19:25 04/13/25 19:24 04/13/25 19:21 04/13/25 19:20 04/13/25 19:20 04/13/25 19:20 04/13/25 19:20 04/13/25 19:20 04/13/25 19:18 04/13/25 19:15 04/13/25 19:15 04/13/25 19:15 04/13/25 19:15 04/13/25 19:15 04/13/25 19:15 04/13/25 19:12 04/13/25 19:10 04/13/25 19:10 04/13/25 19:10 04/13/25 19:10 04/13/25 19:10 04/13/25 19:09 04/13/25 19:05 04/13/25 19:05 04/13/25 19:05 04/13/25 19:05 04/13/25 19:05 04/13/25 19:03 04/13/25 19:00 04/13/25 19:00 04/13/25 19:00 04/13/25 19:00 04/13/25 19:00 04/13/25 19:00 04/13/25 18:55 04/13/25 18:55 04/13/25 18:55 04/13/25 18:55 04/13/25 18:55 04/13/25 18:54 04/13/25 18:51 04/13/25 18:50 04/13/25 18:50 04/13/25 18:50 04/13/25 18:50 04/13/25 18:50 04/13/25 18:48 04/13/25 18:45 04/13/25 18:45 04/13/25 18:45 04/13/25 18:45 04/13/25 18:45 04/13/25 18:45 04/13/25 18:42 04/13/25 18:40 04/13/25 18:40 04/13/25 18:40 04/13/25 18:40 04/13/25 18:40 04/13/25 18:39 04/13/25 18:35 04/13/25 18:35 04/13/25 18:35 04/13/25 18:35 04/13/25 18:35 04/13/25 18:33 04/13/25 18:30 04/13/25 18:30 04/13/25 18:30 04/13/25 18:30 04/13/25 18:30 04/13/25 18:30 04/13/25 18:25 04/13/25 18:25 04/13/25 18:25 04/13/25 18:25 04/13/25 18:24 04/13/25 18:21 04/13/25 18:20 04/13/25 18:20 04/13/25 18:20 04/13/25 18:20 04/13/25 18:20 04/13/25 18:18 04/13/25 18:15 04/13/25 18:15 04/13/25 18:15 04/13/25 18:15 04/13/25 18:15 04/13/25 18:12 04/13/25 18:10 04/13/25 18:10 04/13/25 18:10 04/13/25 18:10 04/13/25 18:09 04/13/25 17:27 Non-rebreather 15 04/13/25 17:14 04/13/25 16:38 Room Air 04/13/25 16:37 04/13/25 16:37 Room Air Laboratory Results Reviewed Diagnostic Findings Reviewed Medications Administered See MAR Coding Level of Care Code 46641 IN/OBS CONSULT LVL 2,35M Diagnoses Anaphylactic reaction T78.2XXA Acute hypoxemic respiratory failure J96.01 Multiple food allergies Z91.018 Time Spent (min) 35
[2025-04-13] MEDS: PLASMA-LYTE A 1,000 ML IV SCH (20:06)
[2025-04-13] MEDS: FAMOTIDINE 20 MG TAB PO SCH (20:13)
[2025-04-13] MEDS: FLUTICASONE/VILANTEROL 200/25MCG 14 PUFFS/INHALER INH SCH (20:14)
[2025-04-13] MEDS ORDERED: FAMOTIDINE 40 MG TABLET PO SCH (21:00)
[2025-04-14 04:51] LABS: Hematocrit (blood only) 43.4 % (42.0-52.0); Hemoglobin 15.2 g/dL (14.0-18.0); Immature Granulocytes # (auto) 0.04 K/uL (0.01-0.20); Immature Granulocytes % (auto) 0.4 %; Mean Corpuscular Hemoglobin 30.3 pg (25.0-34.0); Mean Corpuscular Volume 86.5 fL (80.0-100.0); Platelet Count 200 K/uL (130-400); RDW Standard Deviation 40.8 fL (36.4-46.3); Red Blood Count 5.02 M/uL (4.70-6.10); White Blood Count 9.35 K/ul (4.8-10.8)
[2025-04-14 05:06] LABS: Anion Gap 9.0 (3-11); Blood Urea Nitrogen 9.0 mg/dl (6-23); Calcium 9.2 mg/dl (8.6-10.3); Carbon Dioxide 23.0 mmol/L (21-32); Chloride 105.0 mmol/L (98-107); Creatinine Clr Calc Pharmacy 151.0 ml/min; Glucose 116.0 mg/dl (70-99(Fasting)); Potassium 4.3 mmol/L (3.5-5.1); Sodium 137.0 mmol/L (136-145)
[2025-04-14] MEDS ORDERED: CETIRIZINE HCL 10 MG TABLET PO SCH (09:00)
[2025-04-14] MEDS ORDERED: FAMOTIDINE 20 MG TAB PO SCH (09:00)
[2025-04-14] MEDS: CETIRIZINE ORAL SOLN 1 MG/ML PO SCH ×2 (09:50→10:04)
--- NOTE | 2025-04-14 10:32 | Discharge Summary ---
Date of Service April 14, 2025 Admission HPI Per Admitting Provider 19 y/o male with PMH of asthma nd allergies presented to the Ed after a anaphylaxis reaction. Patient is a volunteer in the hospital. Around 4 pm he had a hot dog, suddenly after patient developed SOB, facial swelling itchiness. Patient used his own EpiPen. His symptoms improved shortly after. After arrival to the ED patient developed recurrence of symptoms, Additionally of facial swelling, difficulty breathing patient states having swelling of lips and face as well as a rash on his body. Patient received 2 mores doses of epinephrine, Benadryl, Methylprednisolone 125 mg and h1 blockers . Patient still was having bronchospasm symptoms, he was placed on an epinephrine drip. On Evaluation patient resting comfortable, symptoms are resolved. Denied nay difficulty breathing or itchiness. Only complains is feeling restless after Epi ggt was started. Patient stated that he usually responded well to the EpiPen. Known history of allergies to egg, lactose, nuts, sesame oil/seeds and selfish. He is a Senior at [employer] Admission Exam Per Admitting Provider Constitutional: WD/WN, vitals as above Eyes: PERRL, conjunctivae normal, anicteric sclerae ENMT: external ear and nose normal, oropharynx normal Respiratory: normal respiratory effort, lungs clear to auscultation Cardiovascular: RRR, no murmur, no edema Psychiatric: A+Ox3, euthymic affect Principal Diagnosis anaphylactic reaction Discharge Exam Constitutional WD/WN, vitals as above Respiratory normal respiratory effort, lungs clear to auscultation normal respiratory effort; no respiratory distress, no labored breathing and does not use accessory muscles Cardiovascular RRR, no murmur, no edema Gastrointestinal (Abdomen) Inspection/Auscultation: abdomen normal to inspection; abdomen not distended Percussion/Palpation: abdomen soft Musculoskeletal Extremities: extremities normal to inspection Skin no rashes, warm and dry Neurologic no focal neurologic deficits Psychiatric A+Ox3, euthymic affect Discharge Data Allergies Allergy/AdvReac Type Severity Reaction Status Date / Time egg Allergy Anaphylaxis Verified 03/13/24 20:26 lactase [From Dairy Aid] Allergy Anaphylaxis Verified 03/13/24 20:26 Milk Containing Products Allergy Anaphylaxis Verified 04/14/25 07:25 (Dairy) nut - unspecified Allergy Anaphylaxis Verified 03/13/24 20:26 sesame oil Allergy Anaphylaxis Verified 03/13/24 20:26 sesame seed Allergy Anaphylaxis Verified 03/13/24 20:26 shellfish derived Allergy Anaphylaxis Verified 03/13/24 20:26 Consultations 04/13/25 19:00 ED Decision to Admit Stat 04/13/25 19:47 Consult Senior Software Engineer Routine Hospital Course (1) Anaphylactic reaction: Plan 19 y/o male with PMH of asthma nd allergies presented to the Ed after a anaphylaxis reaction. Patient is a volunteer in the hospital. Around 4 pm he had a hot dog, suddenly after patient developed SOB, facial swelling itchiness. Patient used his own EpiPen. His symptoms improved shortly after. After arrival to the ED patient developed recurrence of symptoms, Additionally of facial swelling, difficulty breathing patient states having swelling of lips and face as well as a rash on his body. Patient received 2 mores doses of epinephrine, Benadryl, Methylprednisolone 125 mg and h1 blockers . Patient still was having bronchospasm symptoms, he was placed on an epinephrine drip. On Evaluation patient resting comfortable, symptoms are resolved. Denied nay difficulty breathing or itchiness. Only complains is feeling restless after Epi ggt was started. Patient stated that he usually responded well to the EpiPen. Known history of allergies to egg, lactose, nuts, sesame oil/seeds and selfish. He is a Senior at [employer] Anaphylaxis reaction - received IM epinephrine, Benadryl and methylprednisolone 125 mg in the ED and still w/o control of symptoms, therefore was requiring epinephrine ggt and admitted to ICU. - this morning, patient feeling well w/o return of symptoms. Denies chest pain, SOB, wheezing, rash/hives. Hemodynamically stable and afebrile. CBC wnl. Electrolytes wnl. Epinephrine drip d/c overnight. - managed with famotidine 40mg po bid and Benadryl 25 mg IV q4h prn - will d/c patient home with loratadine 10mg daily, famotidine 40mg po bid, and to resume using his home Epi-pen. He is to continue his home inhalers as prescribed. Dispo: home -DVT prophylaxis: low risk, SCDs Total Time Total Time Spent Total Time Spent (In Minutes): 35 Discharge Plan Discharge Items Patient Disposition: Home - Self-Care Reason For Visit: ANAPHYLAXIS Discharge Diagnosis: acute hypoxemic respiratory failure anaphylactic reaction Condition on Discharge: Serious Activity: Resume your previous activity Non-emergency contact: Primary Care Provider Call non-emergency contact if: you have any medication questions, your symptoms worsen and you have a fever Follow-up/Referrals: [facility] [Primary Care Provider] - Diet: Regular Addtl Attending Provider Instructions: You were admitted to [facility] for treatment of an anaphylactic reaction that occurred yesterday after you ate. During admission, your symptoms were managed with an epinephrine drip, Benadryl, and steroids. On discharge, please continue to carry your Epi-Pen and avoid known food allergies. New medications have been sent to the pharmacy. Medications: NEW: loratadine (Claritin) 10mg by mouth daily , famotidine 40mg by mouth two t imes a day , Benadryl 25 mg every 4 hours If there are return of symptoms, please return to the ED promptly for evaluation. Continue other medications as prescribed. Please follow up with [facility] within 1-2 weeks of discharge. Pending Studies at Discharge: No Stand-Alone Forms: My [facility], Work/School Release, Smoking Cessation Medications and DC Order Prescriptions: New diphenhydramine HCl [Benadryl] 25 mg capsule 25 mg PO Q4H PRN (Reason: allergic reaction) Qty: 14 0RF loratadine 10 mg capsule 10 mg PO DAILY Qty: 30 0RF famotidine 40 mg tablet 40 mg PO BID 14 Days Qty: 28 0RF Continued budesonide-formoterol [Symbicort] 160-4.5 mcg/actuation Hfa Aerosol Inhaler 1 inh INHALATION BID epinephrine 0.3 mg/0.3 mL Auto-Injector 0.3 mg IM DIRECTED PRN (Reason: ALLERGIES) albuterol sulfate 90 mcg/actuation Hfa Aerosol Inhaler 1 inh INHALATION QID PRN (Reason: Shortness Of Breath) Discharge Orders: Discharge Order (Routine); Ordered 04/14/25 Ordered By: Gracie Ferreira/Other Patient Handouts: Diphenhydramine Oral Tablet, Loratadine Oral Tablet, Famotidine Oral Tablet Admission Data Admit Date/Time: 04/13/25 19:08 Attending Provider: Vijay Bob Admit Provider: Jatin Parks Primary Care Provider: [facility] Other Providers: Jeffrey Moise Fabricio Pearl Other Interventions: Discharge Summary Assessment (RN) Last Done: 04/14/25 12:32 Supervising Physician Co-Signing Physician Notes Attending attestation Pt seen and examined in concert with Dr. Ritter. In agreement with the documented findings as noted in the resident documentation with any exceptions or additions as noted here. Resolution of presenting complaints following d/c of the epi drip overnight. Tolerating oral regimen well. VS as noted. On examiantion, S1/S2 nl RRR no MCG. CTAB. Abd NT/ND BS+ve. WBC 9.35, HGB 15.2, Cr 0.67, Glu 116 nonfasting Anaphylaxis, refractory - will resume outpatient H1 therapy with PRN diphenhydramine and home inhaler therapy. Continue famotidine 40mg BID until evaluation by PCP. Else see resident documentation as noted. Total attending physician time spent with this patient's care on the day of discharge: 35 minutes.
[2025-04-14 11:04] VITALS: TEMP 98.1
[2025-04-14 12:18] VITALS: RESP 17; O2SAT 97
--- NOTE | 2025-04-14 12:27 | Electrocardiogram Report ---
Test Reason : Blood Pressure : */* mmHG Vent. Rate : 97 BPM Atrial Rate : 97 BPM P-R Int : 124 ms QRS Dur : 96 ms QT Int : 318 ms P-R-T Axes : 74 70 60 degrees QTcB Int : 403 ms Normal sinus rhythm Normal ECG When compared with ECG of 13-Mar-2024 20:16, ST no longer elevated in Inferior leads Confirmed by Jeremías Almanza ([id number]) on 04/14/2025 12:27:07 PM Referred By: REFERRED SELF Confirmed By: Jeremías Almanza
[2025-04-14 12:33] VITALS: BP 116/73; PULSE 99
== END 2025-04-14 14:18 | disposition home or self-care (01) | DRG 915 ==
LOC: ED 16:37 → SUATTDRO 19:08 → 1E 19:08